=== PATIENT | female | born 1945 | race Caucasian/White ===

== ENCOUNTER 2019-12-08 15:00 | Outpatient (CLI) | payer OTHER, SELFPAY ==
[2019-12-08 15:44] LABS: Anion Gap 7 mmol/L (8-16); Blood Urea Nitrogen 24 mg/dL (7-17); Carbon Dioxide 29 mmol/L (22-30); Chloride 103 mmol/L (98-107); Estimated Glomerular Filt Rate > 60; Glucose 117 mg/dL (65-105); Potassium 4.1 mmol/L (3.4-5.0); Sodium 139 mmol/L (137-145)
== END 2019-12-08 15:01 | disposition home or self-care (01) ==
PROVIDERS: Anesthesiology; PCP Family Medicine; Visit Provider Urology
DX: E11.9 Type 2 diabetes mellitus without complications (principal); I10 Essential (primary) hypertension; N39.3 Stress incontinence (female) (male)
CPT/HCPCS: 36415; 80048; 87086; 87088

== ENCOUNTER 2019-12-15 02:32 | Outpatient (CLI) | payer OTHER, SELFPAY ==
[2019-12-15 23:12] LABS: SARS-CoV-2 RNA PCR Negative
== END 2019-12-15 02:33 | disposition home or self-care (01) ==
LOC: ANHCOVIDDT 02:32
PROVIDERS: Visit Provider Urology
DX: Z01.812 Encounter for preprocedural laboratory examination (principal); Z20.828 Contact with and (suspected) exposure to other viral communicable diseases
CPT/HCPCS: 87635; C9803; U0003

== ENCOUNTER 2019-12-18 00:43 | Day surgery (SDC) | payer OTHER, SELFPAY ==
[2019-12-07 14:04] VITALS: BMI 37.0
--- NOTE | 2019-12-09 14:12 | PM.IMHP ---
H&P: HPI History of Present Illness Date/Time: 12/09/19 14:12 Chief complaint: stress incontinence Narrative: Kari Woods is a 74 year old female with stress urinary incontinence and overactive bladder. She is here for treatment of her stress incontinence Review of Systems Review of Systems: All systems reviewed & are unremarkable except as noted in HPI and below PMFSH Social History Social History Smoking status: Never smoker Spiritual care concerns: No Meds Home Medications and Allergies Home Medications Medication Instructions Recorded Confirmed Type amlodipine 5 mg PO QAM 12/07/19 12/07/19 History dulaglutide [Trulicity] 0.75 mg SUBCUT WEEKLY 12/07/19 12/08/19 History duloxetine 60 mg PO QAM 12/07/19 12/07/19 History fluoxetine 40 mg PO QAM 12/07/19 12/07/19 History hydrocodone-acetaminophen 1 tablet PO PRN PRN 12/07/19 12/08/19 History levothyroxine 150 mcg PO QAM 12/07/19 12/07/19 History losartan 100 mg PO QAM 12/07/19 12/07/19 History metformin 500 mg PO BID 12/07/19 12/08/19 History metoprolol succinate 100 mg PO QAM 12/07/19 12/07/19 History omeprazole 20 mg PO QAM 12/07/19 12/07/19 History potassium chloride 10 meq PO QAM 12/07/19 12/07/19 History rosuvastatin 20 mg PO QAM 12/07/19 12/07/19 History terazosin 2 mg PO BID 12/07/19 12/08/19 History Allergies Allergy/AdvReac Type Severity Reaction Status Date / Time Penicillins Allergy Unknown Unknown Verified 12/07/19 13:34 Sulfa (Sulfonamide Allergy Unknown Unknown Verified 12/07/19 13:34 Antibiotics) Exam Const: General: no acute distress HENMT: Mouth: Yes moist mucous membranes Eyes: General: appearance normal, both eyes and all related structures Neck: Neck: supple Resp: Effort & Inspection: normal respiratory effort GI: GI Palp: Yes Soft to palpation Skin: General skin exam: normal color Extrem: General: normal to inspection Assessment and Plan Assessment and plan (1) TAVO (stress urinary incontinence, female): Code(s): N39.3 - Stress incontinence (female) (male) Status: Acute Assessment and Plan: urethral sling
--- NOTE | 2019-12-18 10:01 | WPDHPUPDATE1 ---
History and Physical Update Update Date/Time: 12/18/19 10:01 History and Physical has been reviewed, including an updated exam of the patient. There are NO changes in the patient's condition. Risks, benefits, and alternatives have been discussed and questions answered. Patient agrees to proceed with procedure.
--- NOTE | 2019-12-18 11:15 | ECG_ITS ---
Measurements Intervals [place] Rate: 76 P: 47 [place]: 173 QRS: 4 QRSD: 89 T: 27 QT: 389 QTc: 439 Interpretive Statements SINUS RHYTHM BASELINE ARTIFACT- I, II, III, AVF NORMAL ECG Electronically Signed On 12-18-2019 12:30:02 CDT by Hakeem Wadsworth D.O.
[2019-12-18 11:36] VITALS: BP 184/101; PULSE 89; RESP 18; TEMP 36.2; O2SAT 97
[2019-12-18 11:54] LABS: Glucose Point of Care 117 (65-105)
[2019-12-18] MEDS: LACTATED RINGERS 1,000 ML 30 ML IV CONT (12:30)
--- NOTE | 2019-12-18 12:37 | WPDANESEPPF ---
Anes - Initial Pre Proc Eval Procedure: Operation Date: 12/18/19 13:45 Proposed Procedures p Urethral Sling - Ralph Spencer MD Date/Time: 12/18/19 12:37 Surgeon: Ralph Spencer MD Pre Op Diagnosis: stress incontinence Patient Data Age: 74 Gender: F Height: 5 ft 4 in Weight: 97.8 kg Allergies Allergy/AdvReac Type Severity Reaction Status Date / Time Penicillins Allergy Unknown Unknown Verified 12/18/19 12:23 Sulfa (Sulfonamide Allergy Unknown Unknown Verified 12/18/19 12:23 Antibiotics) Home Medications Medication Instructions Recorded Confirmed Type amlodipine 5 mg PO QAM 12/07/19 12/18/19 History dulaglutide [Trulicity] 0.75 mg SUBCUT WEEKLY 12/07/19 12/18/19 History duloxetine 60 mg PO QAM 12/07/19 12/18/19 History fluoxetine 40 mg PO QAM 12/07/19 12/18/19 History hydrocodone-acetaminophen 1 tablet PO PRN PRN 12/07/19 12/18/19 History levothyroxine 150 mcg PO QAM 12/07/19 12/18/19 History losartan 100 mg PO QAM 12/07/19 12/18/19 History metformin 500 mg PO BID 12/07/19 12/18/19 History metoprolol succinate 100 mg PO QAM 12/07/19 12/18/19 History omeprazole 20 mg PO QAM 12/07/19 12/18/19 History potassium chloride 10 meq PO QAM 12/07/19 12/18/19 History rosuvastatin 20 mg PO QAM 12/07/19 12/18/19 History terazosin 2 mg PO BID 12/07/19 12/18/19 History Laboratory Tests 12/18/19 11:51 POC Capillary Glucose 117 mg/dl H mg/dl (65-105) Patient hx anesthesia problems: none Family hx anesthesia problems: none PMFSH Past Medical History Medical History (Updated 12/18/19 @ 12:37 by Durga Pimentel MD) Chronic back pain HTN (hypertension) Hyperlipidemia Obesity Social History Social History Smoking status: Never smoker Living arrangements: alone Spiritual care concerns: No Anes - Eval Final PreProcedure Day of Procedure 12/18/19 12:37 Patient weight: obese Heart: regular rate and rhythm Lungs: clear to auscultation Airway: Mallampati scale class II Neurological: alert and oriented Last oral intake: >/= 8 hours ASA classification: III Emergent: no Anesthetic plan: proceed Anesthesia type and monitoring: general and standard monitoring Informed Consent: The patient's anesthetic plan and its attendant risks and benefits were discussed with the patient/family/POA. Questions were solicited and answers provided to the satisfaction of the patient/family/POA.
[2019-12-18] MEDS: levoFLOXacin 500 MG/D5W 100 ML 500 MG/100 ML BAG 100 MG IVPB (13:52)
[2019-12-18] MEDS: BUPIVACAINE/EPINEPHRINE 0.25% 50 ML VIAL INFILTRATE (14:12)
--- NOTE | 2019-12-18 14:21 | PM.PROC ---
Procedure Note - Detailed Date of procedure: 12/18/19 Pre-op diagnosis: stress incontinence Stress urinary incontinence Post-op diagnosis: same Procedure performed: Transobturator Mid-urethral sling Cystoscopy Description of procedure: Anesthesia: MAC/Local This is a patient with confirmed stress urinary incontinence. She desires correction. She understands the risks of bleeding, infection, damage to the urinary tract, lack of cure of stress incontinence, recurrence of stress incontinence, postoperative voiding dysfunction including incontinence and retention, need for ancillary procedures to loosen remove the sling, postoperative voiding dysfunction including retention and overactive bladder, hip and leg pain, dyspareunia, mesh related complications including exposure and extrusion. She agrees to proceed. She understands it will not help overactive bladder symptoms if present. She was correctly identified and informed consent obtained. She is brought to the operating room. She was given appropriate anesthesia. She was placed in the dorsal lithotomy position. All pressure points were padded. She was given appropriate perioperative antibiotics and a time-out performed. A Hamilton catheter is placed. I marked out the thigh incisions anesthetize the skin and made those incisions. I anesthetized the anterior vaginal wall over the mid urethra. I made a 1 cm incision. I dissected out laterally taking great care not to injure the urethra or the vaginal wall. Passed the helical trocars 1st on the left and then on the right from the thigh incision towards the vaginal incision. Sling was connected to the trocars and brought out through the thigh incision. I tensioned the sling appropriately. I cut and removed the plastic sheaths. I closed the incision with 2 0 Vicryl. I then performed cystoscopy. There was no surgical artifact or abnormalities inside the bladder. The urethra was normal without surgical artifact. I cut the excess sling material. I closed the incisions with glue. She was awakened and transferred to the PACU in stable condition. Implants: Mid urethral sling Surgeon: Ralph Spencer MD Drains: No Packing: No Pathology: none sent Complications: No immediate complications Condition: stable Disposition: PACU
[2019-12-18 14:22] VITALS: BP 126/76; PULSE 88; RESP 16; O2SAT 93
[2019-12-18 14:50] VITALS: BP 135/77; PULSE 77; RESP 16; O2SAT 94
[2019-12-18 15:20] VITALS: BP 155/75; PULSE 73; RESP 18
== END 2019-12-18 15:42 | disposition home or self-care (01) ==
PROVIDERS: PCP Family Medicine; Visit Provider Urology
PROC: (CPT 57288; principal; 2019-12-18 13:45)
DX: N39.3 Stress incontinence (female) (male) (principal); N32.81 Overactive bladder; I10 Essential (primary) hypertension; E78.5 Hyperlipidemia, unspecified; E66.9 Obesity, unspecified; Z68.37 Body mass index [BMI] 37.0-37.9, adult; Z79.84 Long term (current) use of oral hypoglycemic drugs
CPT/HCPCS: 57288; 93005; A9270; C1771; J1956; J2704; J3010; J7030; J7120